=== PATIENT | female | born 1955 | race Caucasian/White ===

== ENCOUNTER 2024-05-31 21:17 | Emergency (ER) | payer MEDICARE ==
[~2024-05-31] VITALS: Ht 165.1 cm; Wt 61.2 kg
[2024-05-31] MEDS ORDERED: RABIES IMMUNE GLOBULIN/PF 300 UNIT/ML 2 ML VIAL IM ONE (21:57)
[2024-05-31] MEDS ORDERED: RABIES VACCINE (PCEC)/PF 2.5 UNIT ML IM ONE (21:58)
[2024-05-31] MEDS ORDERED: TDAP DIPH,PERTUSS,TET VAC/PF 0.5 ML DISP.SYRIN IM ONE (21:59)
[2024-05-31] MEDS ORDERED: AMOX-430 PO (22:23)
[2024-05-31] MEDS ORDERED: ACETAMINOPHEN 500 MG TABLET ONE (22:34)
[2024-05-31] MEDS ORDERED: AMOXICILLIN-CLAVUL 875-125MG TABLET ONE (22:34)
[2024-05-31] MEDS: RABIES IMMUNE GLOBULIN/PF 300 UNIT/ML 2 ML VIAL IM ONE (22:36)
[2024-05-31] MEDS: TDAP DIPH,PERTUSS,TET VAC/PF 0.5 ML DISP.SYRIN IM ONE (22:38)
[2024-05-31] MEDS: ACETAMINOPHEN 500 MG TABLET PO ONE (22:39)
[2024-05-31] MEDS: RABIES VACCINE (PCEC)/PF 2.5 UNIT ML IM ONE (22:39)
[2024-05-31] MEDS: AMOXICILLIN-CLAVUL 875-125MG TABLET PO ONE (22:39)
[2024-05-31 22:40] VITALS: BP 151/96; TEMP 97.5; O2SAT 98
== END 2024-05-31 22:41 | disposition home or self-care (01) ==
LOC: ER 21:19
DX: S61.431A Puncture wound without foreign body of right hand, initial encounter (principal); Z79.899 Other long term (current) drug therapy; W55.01XA Bitten by cat, initial encounter; Y93.89 Activity, other specified; Y92.89 Other specified places as the place of occurrence of the external cause; Y99.8 Other external cause status
CPT/HCPCS: 70030-TC; 90376; 90715; A4606; A4663; A9150

== ENCOUNTER 2024-06-03 05:19 | Emergency (ER) | payer MEDICARE ==
[~2024-06-03] VITALS: Ht 160 cm; Wt 61.2 kg
[~2024-06-03 05:19] MED LIST: AMOX-430 PO
[2024-06-03 05:40] VITALS: O2SAT 98
[2024-06-03] MEDS ORDERED: RABIES VACCINE (PCEC)/PF 2.5 UNIT ML IM ONE (06:04)
[2024-06-03] MEDS: RABIES VACCINE (PCEC)/PF 2.5 UNIT ML IM ONE (06:15)
== END 2024-06-03 06:20 | disposition home or self-care (01) ==
LOC: ER 05:20
DX: Z23 Encounter for immunization (principal); Z79.899 Other long term (current) drug therapy
CPT/HCPCS: A4606; A4663

== ENCOUNTER 2024-06-06 23:56 | Emergency (ER) | payer MEDICARE, OTHER ==
[~2024-06-06] VITALS: Ht 160 cm; Wt 61.2 kg
[2024-06-07] MEDS ORDERED: RABIES VACCINE (PCEC)/PF 2.5 UNIT ML IM ONE (00:15)
[2024-06-07 01:09] VITALS: BP 140/83; TEMP 98.6; O2SAT 98
== END 2024-06-07 01:10 | disposition home or self-care (01) ==
LOC: ER 06-07 00:05
DX: T14.8XXD Other injury of unspecified body region, subsequent encounter (principal); Z23 Encounter for immunization; W55.01XD Bitten by cat, subsequent encounter
CPT/HCPCS: A4606; A4663

== ENCOUNTER 2024-06-08 00:13 | Emergency (ER) | payer MEDICARE, OTHER ==
[~2024-06-08] VITALS: Ht 160 cm; Wt 61.2 kg
[2024-06-08] MEDS ORDERED: RABIES VACCINE (PCEC)/PF 2.5 UNIT ML IM ONE (00:35)
[2024-06-08] MEDS: RABIES VACCINE (PCEC)/PF 2.5 UNIT ML IM ONE (00:42)
[2024-06-08 00:46] VITALS: BP 123/70; TEMP 98.5; O2SAT 100
== END 2024-06-08 00:46 | disposition home or self-care (01) ==
LOC: ER 00:22
DX: S61.431D Puncture wound without foreign body of right hand, subsequent encounter (principal); I10 Essential (primary) hypertension; Z79.899 Other long term (current) drug therapy; W55.01XD Bitten by cat, subsequent encounter
CPT/HCPCS: A4606; A4663

== ENCOUNTER 2024-06-14 21:49 | Emergency (ER) | payer MEDICARE, OTHER ==
[~2024-06-14] VITALS: Ht 160 cm; Wt 61.2 kg
[2024-06-14] MEDS ORDERED: RABIES VACCINE (PCEC)/PF 2.5 UNIT ML IM ONE (22:35)
[2024-06-14] MEDS: RABIES VACCINE (PCEC)/PF 2.5 UNIT ML IM ONE (22:45)
[2024-06-14 23:12] VITALS: BP 114/74; TEMP 98; O2SAT 97
== END 2024-06-14 22:50 | disposition home or self-care (01) ==
LOC: ER 21:49
DX: S61.432D Puncture wound without foreign body of left hand, subsequent encounter (principal); Z79.899 Other long term (current) drug therapy; W55.01XD Bitten by cat, subsequent encounter
CPT/HCPCS: A4606; A4663